=== PATIENT | male | born 2005 | race Caucasian/White ===

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

== ENCOUNTER 2023-05-14 05:13 | Inpatient (IN) ==
[2023-05-14] MEDS: Charcoal Activated/SORBITOL 50 GM/240 ML BTL PO ONE (06:13)
[2023-05-14 06:42] LABS: Venous Bicarbonate HCO3 23.9 mmol/L (24-28)
[2023-05-14 06:56] LABS: ABS Eosinophils 0.5 10^3/uL (0.0-0.5); ABS Lymphocytes 1.5 10^3/uL (1.0-4.8); ABS Monocytes 0.4 10^3/uL (0.0-1.1); ABS Neutrophils 4.2 10^3/uL (1.5-7.6); ABS Nucleated RBC 0.01 10^3/ul; Eosinophil % 7.6 %; Hematocrit 46.7 % (38-53); Hemoglobin 15.9 g/dL (13.2-16.3); Lymphocyte % 22.5 %; Mean Corpuscular Hemoglobin 30.6 pg (27-33); Mean Corpuscular Hgb Conc 34.1 g/dL (31-36); Mean Corpuscular Volume 89.9 fL (80-97); Mean Platelet Volume 9.4 fL (7.5-11.2); Nucleated Red Blood Cells % 0.1 %/100WBC (0.0-0.8); Platelet Count 205 10^3/uL (150-450); Red Blood Count 5.19 10^6/uL (4.06-5.63); Red Cell Distribution Width 13.7 % (12-17); White Blood Count 6.5 10^3/uL (3.6-10.2)
[2023-05-14 07:20] LABS: ALT 13 U/L (7-52); AST 17 U/L (13-39); Acetaminophen < 15 mcg/mL; Albumin/Globulin Ratio 2.5 (1-3); Alcohol, S < 13 mg/dL (<13); Alkaline Phosphatase 67 U/L (35-149); Anion Gap 13 mmol/L (2-16); Blood Urea Nitrogen 12 mg/dL (6-24); CO2 Carbon Dioxide 25 mmol/L (22-32); Calcium 10.6 mg/dL (8.6-10.3); Chloride 103 mmol/L (101-111); Creatine Kinase 63 U/L (10-223); Creatinine, Serum 1.03 mg/dL (0.67-1.17); Glucose 98 mg/dL (70-100); Potassium 4.4 mmol/L (3.5-5.0); Salicylate < 2.50 mg/dL (<30); Sodium 141 mmol/L (135-145); Total Bilirubin 0.5 mg/dL (0.2-1.0); eGFR CKD-EPI 107.3 (>60)
[2023-05-14 07:34] LABS: TSH Ultra Thyroid Stim Horm 1.78 mcIU/mL (0.34-5.60)
[2023-05-14 09:06] LABS: Urine Benzodiazepine Screen None Detected (None Detect); Urine Cannabinoids Screen None Detected (None Detect); Urine Opiates Screen None Detected (None Detect)
[2023-05-14] MEDS ORDERED: Al Hydrox/Mg Hydrox/Simet LIQ 30 ML UDC PO PRN (21:42)
[2023-05-15] MEDS ORDERED: Albuterol HFA INHALER 8 gm MDI INH PRN (05:27)
[2023-05-15 08:32] LABS: HDL Cholesterol 61.4 mg/dL
[2023-05-15] MEDS: Vitamin THERAPEUTIC TAB PO SCH (09:36)
[2023-05-17 09:38] VITALS: BP 115/74
== END 2023-05-17 12:00 | disposition home or self-care (01) | DRG 753 ==
LOC: ED 05:13 → EDHOLD 20:34 → BSU 21:28
PROVIDERS: ADMIT Psychiatry & Neurology Psychiatry; ATTEND Student in an Organized Health Care Education/Training Program

== ENCOUNTER 2023-11-10 22:34 | Observation (INO) ==
[2023-11-10] MEDS: Albuterol/Ipratropium NEB.SOL (2.5/0.5 MG) 3 ML NEB.SOLN INH SCH (22:55)
[2023-11-10 23:30] LABS: ABS Eosinophils 0.9 10^3/uL (0.0-0.5); ABS Lymphocytes 1.3 10^3/uL (1.0-4.8); ABS Monocytes 0.7 10^3/uL (0.0-1.1); ABS Neutrophils 4.1 10^3/uL (1.5-7.6); ABS Nucleated RBC 0.01 10^3/ul; Hematocrit 48.2 % (38-53); Hemoglobin 16.4 g/dL (13.2-16.3); Lymphocyte % 18.7 %; Mean Corpuscular Hemoglobin 30.5 pg (27-33); Mean Corpuscular Hgb Conc 34.1 g/dL (31-36); Mean Corpuscular Volume 89.5 fL (80-97); Mean Platelet Volume 9.2 fL (7.5-11.2); Nucleated Red Blood Cells % 0.1 %/100WBC (0.0-0.8); Platelet Count 165 10^3/uL (150-450); Red Blood Count 5.38 10^6/uL (4.06-5.63); White Blood Count 7.1 10^3/uL (3.6-10.2)
[2023-11-11 00:14] LABS: Albumin 4.7 g/dL (3.2-5.2); C Reactive Protein 37.46 mg/L (<8.01); Calcium 10.2 mg/dL (8.6-10.3); Creatinine, Serum 0.93 mg/dL (0.67-1.17); Globulin 2.4 g/dL (2-4); Total Bilirubin 0.6 mg/dL (0.2-1.0); Total Protein 7.1 g/dL (6.4-8.9); eGFR CKD-EPI 120.6 (>60)
[2023-11-11] MEDS: Albuterol 2.5mg/3 ml (0.083%) NEB.SOLN INH ONE (01:29)
[2023-11-11] MEDS: Albuterol/Ipratropium NEB.SOL (2.5/0.5 MG) 3 ML NEB.SOLN INH SCH ×2 (03:59→07:58)
[2023-11-11] MEDS: Albuterol/Ipratropium NEB.SOL (2.5/0.5 MG) 3 ML NEB.SOLN INH PRN (08:01)
[2023-11-11] MEDS: Levalbuterol 1.25MG/0.5ML NEB.SOL INH SCH ×2 (08:02→10:52)
[2023-11-11] MEDS: Iohexol 350 (CONTRAST) 500 ML MDV IV ONE (08:43)
[2023-11-11] MEDS: Magnesium Sulfate 2 gm BAG 2 GM/50 ML BAG IVPB ONE (08:48)
[2023-11-11] MEDS: BECLOMETHASONE 40 MCG INH SCH (09:25)
[2023-11-11] MEDS: MDI INH SCH (09:25)
[2023-11-11] MEDS: cefTRIAXone 1 gm/50 mL D5W 1 GM/50 ML BAG IV SCH (10:24)
[2023-11-11] MEDS: Azithromycin 500 mg/250 ml NS 500 MG/250 ML BAG IVPB SCH (10:27)
[2023-11-11] MEDS: methylPREDNISolone SOD SUCC 40 mg/ml 1 ml VIAL IV SCH (11:51)
[2023-11-11] MEDS: Lactated Ringers 1000 ml BAG 1,000 ML IV SCH (14:00)
[2023-11-11] MEDS ORDERED: guaiFENesin/CODIENE 100mg/10mg 5 ML UDC PO PRN (16:30)
[2023-11-12] MEDS ORDERED: COVID VAC 24-25 (12+) (Moderna) Syringe 0.5 mL IM ONE (09:00)
[2023-11-12] MEDS ORDERED: Influenza Vaccine *TRI* 2024-25* 0.5 ML SYRINGE IM ONE (09:00)
[2023-11-12 14:23] VITALS: BP 134/67
[2023-11-12] MEDS: Albuterol HFA INHALER 8 gm MDI INH ONE (14:32)
[2023-11-12] MEDS ORDERED: Mometasone 220 MCG MDI INH SCH (19:00)
== END 2023-11-12 16:00 | disposition home or self-care (01) ==
LOC: EDHOLD 22:34 → ED 22:34 → MEDTELE 11-11 16:39
PROVIDERS: ADMIT Internal Medicine; ATTEND Internal Medicine